=== PATIENT | female | born 1965 | race Caucasian/White ===

== ENCOUNTER 2016-07-28 09:54 | Day surgery (SDC) | payer MEDICARE, BC, SELFPAY ==
[~2016-07-28 09:54] MED LIST: ADVIL200 MG; ATIVAN2 M1 PO; ATIVAN2 MG; ATIVAN2 MG PO; CELEBREX200 M1 PO; COMBIVENT INH14.7 GM IH; DURAGESIC1 EAC1 TOP; DURAGESIC1 PATCH .7 TOP; ELAVIL; H PO; LEVAQUIN500 MG PO; MILK THISTLE; NAPROXEN500 MG PO; NEURONTIN100 MG; NEURONTIN300 M1 PO; NEURONTIN300 MG PO; NORCO 5-325 TA1 EACH PO; NORCO 5/325 TAB1 TAB PO; NORTRIPTYLINE H25 M1 PO; PRILOSEC20 M1 PO; PROBIOTIC1 EAC6 PO; TOPROL XL25 M1 PO; TYLENOL325 MG; [UNRECOGNIZED DRUG - OTHER]
[2016-07-28 11:37] LABS: HCT-HEMATOCRIT 42.3 % (34.0-49.0); HGB-HEMOGLOBIN 14.4 gm/dl (12.0-15.5); MCV (MEAN CELL VOLUME) 89.8 fl (82.0-96.0); RED CELL DISTRIBUTION WIDTH 13.5 % (12.4-16.4)
== END 2016-07-28 16:45 ==
LOC: WSU 09:54 → SHSB 09:57 → ORW 13:58 → PACU 15:20 → SHSB 15:45
PROVIDERS: Obstetrics & Gynecology
PROC: 0DNW4ZZ Release Peritoneum, Percutaneous Endoscopic Approach (ICD-10-PCS; principal; 2016-07-28)
PROC: 8E0W4CZ Robotic Assisted Procedure of Trunk Region, Percutaneous Endoscopic Approach (ICD-10-PCS; 2016-07-28)
DX: N73.6 Female pelvic peritoneal adhesions (postinfective) (principal); G89.29 Other chronic pain; I10 Essential (primary) hypertension; E66.9 Obesity, unspecified; E78.5 Hyperlipidemia, unspecified; M19.90 Unspecified osteoarthritis, unspecified site; F41.9 Anxiety disorder, unspecified; F32.9 Major depressive disorder, single episode, unspecified; G47.00 Insomnia, unspecified; J44.9 Chronic obstructive pulmonary disease, unspecified; F17.210 Nicotine dependence, cigarettes, uncomplicated; Z79.1 Long term (current) use of non-steroidal anti-inflammatories (NSAID); Z79.899 Other long term (current) drug therapy; Z88.1 Allergy status to other antibiotic agents; Z88.8 Allergy status to other drugs, medicaments and biological substances; Z90.49 Acquired absence of other specified parts of digestive tract; Z90.710 Acquired absence of both cervix and uterus; Z90.79 Acquired absence of other genital organ(s); Z90.722 Acquired absence of ovaries, bilateral; Z98.1 Arthrodesis status; Z98.890 Other specified postprocedural states
CPT/HCPCS: J7030

== ENCOUNTER 2016-10-03 00:46 | Emergency (ER) | payer MEDICARE, BC, SELFPAY ==
[2016-10-03 01:04] LABS: URINE BILIRUBIN NEGATIVE (NEG); URINE BLOOD LARGE (NEG); URINE GLUCOSE (UA) NEGATIVE (NEG); URINE KETONE NEGATIVE (NEG); URINE LEUKOCYTE ESTERASE POSITIVE (NEG); URINE NITRITE NEGATIVE (NEG); URINE PROTEIN MODERATE (NEG)
[2016-10-03 01:11] LABS: URINE APPEARANCE HAZY; URINE COLOR YELLOW
[2016-10-03 01:17] LABS: URINE RBC 20-30 /[HPF] (0-5); URINE WBC 80-90 /[HPF] (0-5)
[2016-10-03 01:18] LABS: URINE BACTERIA 2+; URINE EPITHELIAL CELLS 0-1 /[HPF] (0-10)
[2016-10-03 02:06] LABS: BASO % 0.3 % (0-2); EOS % 2.3 % (0-7); HGB-HEMOGLOBIN 14.3 gm/dl (12.0-15.5); IMMATURE GRANULOCYTES ABSOLUTE 0.02 tho/cmm (0-0.03); IMMATURE GRANULOCYTES PERCENT 0.2 % (0-0.3); LYMPH % 46.6 % (20-45); MCH (MEAN CORPUSCULAR HGB) 30.4 pg (28.0-32.0); MCV (MEAN CELL VOLUME) 89.4 fl (82.0-96.0); MEAN PLATELET VOLUME 12.2 cmc (9.4-12.4); MONO % 7.1 % (0-12); NEUTROPHILS % 43.5 % (40-80); PLATELET COUNT 216 tho/cmm (150-450); RED CELL DISTRIBUTION WIDTH 13.7 % (12.4-16.4); WHITE BLOOD COUNT 11.4 tho/cmm (4.0-10.0)
[2016-10-03 02:10] LABS: EOSINOPHIL ABSOLUTE COUNT 0.3 tho/cmm (0.0-0.7); LYMPH ABSOLUTE COUNT 5.3 tho/cmm (0.8-4.5); MONOCYTE ABSOLUTE COUNT 0.8 tho/cmm (0.0-1.2)
[2016-10-03 02:15] LABS: ANION GAP 12 mmol/L (0-20); BLOOD UREA NITROGEN 8 mg/dl (6-24); CALCIUM 9.1 mg/dl (8.5-10.5); CARBON DIOXIDE-VENOUS 25 mmol/L (22-32); CHLORIDE 105 mmol/l (96-110); CREATININE 0.76 mg/dl (0.50-1.10); GLUCOSE 111 mg/dL (70-110); POTASSIUM 3.4 mmol/L (3.7-5.1); SODIUM 139 mmol/L (135-145); eGFR VALUE FOR BLACK >90 mL/Min
[2016-10-03] MEDS ORDERED: KEFLEX500 M4 PO (02:58)
== END 2016-10-03 04:00 ==
LOC: EDMED 00:46
PROVIDERS: Emergency Medicine
DX: N30.01 Acute cystitis with hematuria (principal); E66.9 Obesity, unspecified; Z87.442 Personal history of urinary calculi; Z90.89 Acquired absence of other organs; Z90.49 Acquired absence of other specified parts of digestive tract; Z90.710 Acquired absence of both cervix and uterus; Z98.890 Other specified postprocedural states; F17.200 Nicotine dependence, unspecified, uncomplicated
CPT/HCPCS: J0696; J1170; J1885; J2405; J7030